=== PATIENT | female | born 1965 | race Caucasian/White ===

== ENCOUNTER 2022-01-11 23:08 | Emergency (ER) | payer OTHER ==
[2022-01-11] MEDS ORDERED: LIDOCAINE 1% MPF 30 ML VIAL ONE (23:52)
--- NOTE | 2022-01-12 00:33 | EDPHYS ---
Physician Documentation [facility] Name: Kayla Cantor Age: 57 yrs Sex: Female : 1965 Arrival Date: 01/11/2022 Time: 23:10 Bed 5 Private MD: ED Physician Stefan Manjarrez HPI: 01/11 23:28 This 57 yrs old Female presents to ER via Ambulatory with complaints of Fall Injury, rn Arm Injury. 23:28 Details of fall: The patient fell from an upright position, while standing. Onset: The rn symptoms/episode began/occurred just prior to arrival. Associated injuries: The patient sustained right arm. Severity of symptoms: At their worst the symptoms were mild, in the emergency department the symptoms are unchanged. The patient has not experienced similar symptoms in the past. The patient has not recently seen a physician. Pt states slipped, fell, hit right arm on edge of tile, came for laceration to right mid arm. No other injury. FROM of right arm. NO head injury. . Historical: - Allergies: 23:24 Codeine; bm7 - Home Meds: 23:24 Unable to obtain [Active]; bm7 - PMHx: 23:24 Hypertensive disorder; bm7 - PSHx: 23:24 None; bm7 - Immunization history:: Adult Immunizations up to date, Client reports receiving the 2nd dose of the Covid vaccine, Client reports receiving the 1st dose of the Covid vaccine. - Social history:: Smoking status: Patient reports the use of cigarette tobacco products, smokes one-half pack cigarettes per day, Patient uses alcohol, only on a social basis. - Family history:: not pertinent. - Hospitalizations: : No recent hospitalization is reported. ROS: 23:28 Constitutional: Negative for fever, chills, and weight loss, Neck: Negative for injury, rn pain, and swelling, Cardiovascular: Negative for chest pain, palpitations, and edema, Respiratory: Negative for shortness of breath, cough, wheezing, and pleuritic chest pain, Abdomen/GI: Negative for abdominal pain, nausea, vomiting, diarrhea, and constipation, Back: Negative for injury and pain, MS/Extremity: + laceration to right arm Neuro: Negative for headache, weakness, numbness, tingling, and seizure. Exam: 23:28 Constitutional: This is a well developed, well nourished patient who is awake, alert, rn and in no acute distress. Head/Face: Normocephalic, atraumatic. Eyes: Pupils equal round and reactive to light, extra-ocular motions intact Neck: No midline cervical tenderness Chest/axilla: Normal chest wall appearance and motion. Cardiovascular: Regular rate and rhythm. No pulse deficits. MS/ Extremity: Pulses equal, no cyanosis. Neurovascular intact. Full, normal range of motion. Equal circumference. Right arm with 10 cm chevron laceration/deep skin avulsion just distal to right elbow, no active bleeding, no foreign body. Vital Signs: 23:24 BP 102 / 50; Pulse 78; Resp 16; Temp 98.3(TE); Pulse Ox 98% on R/A; Weight 54.43 kg bm7 (R); Height 5 ft. 2 in. (157.48 cm); Pain 10/10; 23:24 Body Mass Index 21.95 (54.43 kg, 157.48 cm) bm7 Laceration: 01/12 00:30 Wound Repair of 10cm ( 3.9in ) subcutaneous laceration to right proximal forearm. rn Distal neuro/vascular/tendon intact. Anesthesia: Wound infiltrated with 4 mls of 1% lidocaine. Wound prep: Extensive cleansing by me, Wound irrigation by me, Wound explored extensively. Skin closed with 15 3-0 Prolene using interrupted sutures and sterile technique. Subcutaneous tissue closed with 3 3-0 chromic gut using interrupted sutures and sterile technique. Dressed with 4x4's, Kerlix. Patient tolerated well. MDM: 01/11 23:18 Patient medically screened. rn 01/12 00:30 Differential diagnosis: laceration. Data reviewed: vital signs, nurses notes, and as a rn result, I will discharge patient. Counseling: I had a detailed discussion with the patient and/or guardian regarding: the historical points, exam findings, and any diagnostic results supporting the discharge/admit diagnosis, the need for outpatient follow up, to return to the emergency department if symptoms worsen or persist or if there are any questions or concerns that arise at home. Response to treatment: the patient's symptoms have markedly improved after treatment, and as a result, I will discharge patient. Special discussion: I discussed with the patient/guardian in detail that at this point there is no indication for admission to the hospital. It is understood, however, that if the symptoms persist or worsen the patient needs to return immediately for re-evaluation. 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 Exp: 09/08/2023. Lot ll3 #: [id number]. } Route: IM; Site: left deltoid; 00:57 Follow up: Response: No adverse reaction ll3 00:57 Drug: Lidocaine (1 %) 1 vials {Note: Administered by Dr. Loki MD.} Volume: 20 ml; ll3 Route: Infiltration; 00:57 Follow up: Response: No adverse reaction ll3 Disposition Summary: 01/12/22 00:32 Discharge Ordered Location: Home rn Problem: new rn Symptoms: have improved rn Condition: Stable rn Diagnosis - Arm Laceration Right/Open wound forearm rn Followup: rn - With: Private Physician - When: 14 days - Reason: Staple/Suture removal Discharge Instructions: - Discharge Summary Sheet rn - Laceration Care, Adult rn Forms: - Medication Reconciliation Form rn - Thank You Letter rn - Antibiotic rn progressive care unit - Prescription Opioid Use rn Prescriptions: - Cephalexin 500 mg Oral Capsule - take 1 capsule by ORAL route every 12 hours for 10 days; 20 capsule; Refills: rn 0, Product Selection Permitted Signatures: Stefan Manjarrez MD MD rn McCarthy, Brittany RN RN bm7 Henry Kearney RN RN ll3
--- NOTE | 2022-01-12 00:33 | ER ---
Nurse's Notes [facility] Name: Kayla Cantor Age: 57 yrs Sex: Female : 1965 Arrival Date: 01/11/2022 Time: 23:10 Bed 5 Private MD: Diagnosis: Arm Laceration Right/Open wound forearm Presentation: 01/11 23:23 Chief complaint: Patient states: I was trying to step up to go to the bathroom and I bm7 tripped on the tile and cut my arm. Coronavirus screen: At this time, the client does not indicate any symptoms associated with coronavirus-19. Ebola Screen: No symptoms or risks identified at this time. Initial Sepsis Screen: Does the patient meet any 2 criteria? No. Patient's initial sepsis screen is negative. Does the patient have a suspected source of infection? No. Patient's initial sepsis screen is negative. Risk Assessment: Do you want to hurt yourself or someone else? Patient reports no desire to harm self or others. Onset of symptoms was January 11, 2022. 23:23 Method Of Arrival: Ambulatory 7 23:23 Acuity: XIOMARA 3 bm7 Triage Assessment: 23:24 General: Appears in no apparent distress. uncomfortable, Behavior is calm, cooperative, bm7 Smells of alcohol. Pain: Complains of pain in right arm. EENT: No deficits noted. No signs and/or symptoms were reported regarding the EENT system. Neuro: No deficits noted. Cardiovascular: No deficits noted. Respiratory: No deficits noted. GI: No deficits noted. No signs and/or symptoms were reported involving the gastrointestinal system. : No deficits noted. No signs and/or symptoms were reported regarding the genitourinary system. Derm: Wound noted palmar aspect of right forearm. Musculoskeletal: Reports pain in right arm. Injury Description: Avulsion sustained to palmar aspect of right forearm is partial was sustained 30-60 minutes ago. Historical: - Allergies: 23:24 Codeine; bm7 - Home Meds: 23:24 Unable to obtain [Active]; bm7 - PMHx: 23:24 Hypertensive disorder; bm7 - PSHx: 23:24 None; bm7 - Immunization history:: Adult Immunizations up to date, Client reports receiving the 2nd dose of the Covid vaccine, Client reports receiving the 1st dose of the Covid vaccine. - Social history:: Smoking status: Patient reports the use of cigarette tobacco products, smokes one-half pack cigarettes per day, Patient uses alcohol, only on a social basis. - Family history:: not pertinent. - Hospitalizations: : No recent hospitalization is reported. Screenin/10 00:57 Abuse screen: Denies threats or abuse. Denies injuries from another. Nutritional ll3 screening: No deficits noted. Tuberculosis screening: No symptoms or risk factors identified. Fall Risk None identified. Assessment: 00:58 Reassessment: No changes from previously documented assessment. Patient and/or family ll3 updated on plan of care and expected duration. Pain level reassessed. Patient is alert, oriented x 3, equal unlabored respirations, skin warm/dry/pink. Vital Signs: 01/11 23:24 BP 102 / 50; Pulse 78; Resp 16; Temp 98.3(TE); Pulse Ox 98% on R/A; Weight 54.43 kg bm7 (R); Height 5 ft. 2 in. (157.48 cm); Pain 10/10; 23:24 Body Mass Index 21.95 (54.43 kg, 157.48 cm) bm7 ED Course: 23:10 Patient arrived in ED. ja2 23:18 Stefan Manjarrez MD is Attending Physician. rn 23:24 Triage completed. bm7 23:24 Arm band placed on right wrist. bm7 23:43 Anita Escobar, ERIC is Primary Nurse. ke1 01/12 00:57 Patient has correct armband on for positive identification. Bed in low position. Call ll3 light in reach. Side rails up X 1. 00:57 No provider procedures requiring assistance completed. Patient did not have IV access ll3 during this emergency room visit. Administered Medications: 00:56 Drug: Tetanus Toxoid,Adsorbed 0.5 ml {[employer]: [employer]. Exp: 09/08/2023. Lot ll3 #: [id number]. } Route: IM; Site: left deltoid; 00:57 Follow up: Response: No adverse reaction ll3 00:57 Drug: Lidocaine (1 %) 1 vials {Note: Administered by Dr. Loki MD.} Volume: 20 ml; ll3 Route: Infiltration; 00:57 Follow up: Response: No adverse reaction ll3 Medication: 00:58 Vaccine Information Statement (VIS) provided today. Questions and/or concerns ll3 addressed. VIS edition date: January 12, 2022. Outcome: 00:32 Discharge ordered by . rn 00:57 Discharged to home ambulatory, with significant other. ll3 00:57 Condition: stable 00:57 Discharge instructions given to patient, significant other, Instructed on discharge instructions, follow up and referral plans. medication usage, Demonstrated understanding of instructions, follow-up care, medications, Prescriptions given X 1. 00:59 Patient left the ED. ll3 Signatures: Stefan Manjarrez MD MD rn McCarthy, Brittany RN RN bm7 Evi Collier Lynsea RN RN ll3 Anita Escobar RN RN ke1
[2022-01-12] MEDS ORDERED: TETANUS & DIPHTHERIA TOX,ADULT 0.5 ML VIAL ONE (00:55)
[2022-01-12 06:51] VITALS: BP 102/50; TEMP 98.3; O2SAT 98
== END 2022-01-12 00:59 | disposition home or self-care (01) ==
LOC: ER 23:08
PROC: 0JQG0ZZ Repair Right Lower Arm Subcutaneous Tissue and Fascia, Open Approach (ICD-10-PCS; principal; 2022-01-12)
DX: S51.811A Laceration without foreign body of right forearm, initial encounter (principal); Z23 Encounter for immunization; I10 Essential (primary) hypertension; F17.210 Nicotine dependence, cigarettes, uncomplicated
CPT/HCPCS: 90471; 90714; 99283